=== PATIENT | male | born 1965 | race Caucasian/White ===

== ENCOUNTER 2023-08-02 16:13 | Emergency (ER) | payer BC ==
[~2023-08-02] VITALS: Ht 175.3 cm; Wt 90.7 kg
[2023-08-02 16:25] VITALS: BP 146/87; PULSE 78; RESP 18; TEMP 98; O2SAT 98
[2023-08-02] MEDS ORDERED: PRED20TA5 PO (16:58)
[2023-08-02] MEDS ORDERED: DEXT15DR6 LEFT EYE (16:58)
[2023-08-02] MEDS ORDERED: MINE3.5O2 LEFT EYE (16:58)
[2023-08-02] MEDS ORDERED: ACYC400T14 PO (16:58)
[2023-08-02 17:01] LABS: BASOPHILS % (AUTO) 0.5 % (0.0-2.0); EOSINOPHILS % (AUTO) 0.5 % (0.0-4.0); HEMATOCRIT 43.5 % (36-52); HEMOGLOBIN 14.8 g/dL (12.0-18.0); LYMPHOCYTES % (AUTO) 22.5 % (20.5-51.1); MEAN CORPUSCULAR HEMOGLOBIN 30 pg (27-31); MEAN CORPUSCULAR HGB CONC 34 g/dL (33-37); MEAN CORPUSCULAR VOLUME 88.7 fL (80-94); MONOCYTES % (AUTO) 11.9 % (1.7-9.3); NEUTROPHILS # (AUTO) 5.7 K/uL (1.8-7.7); NEUTROPHILS % (AUTO) 64.6 % (42.2-75.2); PLATELET COUNT (AUTO) 161 K/uL (140-450); RED CELL DISTRIBUTION WIDTH 14.2 % (11.6-13.7); WHITE BLOOD COUNT (AUTO) 8.8 K/uL (4.8-10.8)
[2023-08-02 17:15] LABS: ANION GAP 15.6 (8-16); CALCIUM 8.6 mg/dL (8.5-10.1); CARBON DIOXIDE 25.3 mmol/L (21-32); CREATININE 1.3 mg/dL (0.6-1.3); POTASSIUM 3.9 mmol/L (3.5-5.1); TOTAL BILIRUBIN 0.7 mg/dL (0.0-1.0); TOTAL PROTEIN, SERUM 8.5 g/dL (6.4-8.2)
[2023-08-02 17:39] VITALS: BP 139/81; PULSE 84; RESP 16; TEMP 98.2; O2SAT 97
== END 2023-08-02 17:39 | disposition home or self-care (01) ==
LOC: MED 16:13
DX: G51.0 Bell's palsy (principal); I10 Essential (primary) hypertension; Z79.899 Other long term (current) drug therapy
CPT/HCPCS: 36415; 80053; 83690; 85025; 99283